=== PATIENT | male | born 1960 | race African-American/Black ===

== ENCOUNTER 2018-06-25 19:21 | Emergency (ER) | payer MEDICAID, OTHER ==
[~2018-06-25] VITALS: Ht 175.3 cm; Wt 81.6 kg
[2018-06-25 19:35] VITALS: BP 106/68
--- NOTE | 2018-06-25 19:37 | NUR ---
ED Nurse Note: pt came from [place]oe c/o shortness of breath for few days. pt is not in any resp distress at the moment, no evidence of accessory muscles being used for breathing effort. pt is alert and oriented times 4. pt is sating at 99% O2 on room air.
[2018-06-25] MEDS ORDERED: Albuterol/Ipratropium 3ml neb HHN ONE (19:45)
--- NOTE | 2018-06-25 20:03 | Emergency Room Report ---
History of Present Illness General Chief Complaint: Asthma Source: Patient Present Illness HPI 58-year-old male with history of asthma and chronic back pain controlled with albuterol inhaler and oxycodone here complaining of 2 days of shortness of breath after losing his albuterol inhaler. Patient reports that he went to [facility] and his luggage was lost and his medication including albuterol inhaler, meloxicam, and his cough medication went in the suitcase. Patient has not been able to use any albuterol inhaler in the past 2 days. Reports shortness of breath and wheezing. He reports having history of pulmonary hypertension. Has been taking NyQuilwith minimal relief. Denies dizziness, headache, nausea vomiting, vision changes, chest pain, palpitation, rhinorrhea, sore throat, and all other URI symptoms.patient ambulates to the emergency room in a stable condition and in no apparent distress. CURES was done on patient and he has extensive history of oxycodone use PRESCRIBED by the same provider. patient has been using the patch for relief of pain. Complains of low back pain 10 out of 10 without radiation denies tingling, numbness, saddle paresthesia, urinary and bowel incontinence. he later reports he has meloxicam, running low on oxycodone , has apt in [address] his primary Dr[address] patient is requesting a Z-Jamie, Ventolin HFA, and Phenergan With Codeine as he last saw his shoddy mill worker 6 months ago for pulmonary hypertension and that was a regimen that was prescribed to him. He has not seen his shoddy mill worker since. Requesting Phenergan With Codeine and Z-Jamie. Allergies: Uncoded Allergies: PENCILLIN (Allergy, Unknown, hives, 06/25/18) Patient History Past Medical History: see triage record Past Surgical History: unable to obtain Pertinent Family History: none Immunizations: UTD Reviewed Nursing Documentation: PMH: Agreed; PSxH: Agreed Nursing Documentation-PMH Past Medical History: No History, Except For Hx Hypertension: Yes - pulmonary HTN Hx Asthma: Yes Review of Systems All Other Systems: negative except mentioned in HPI Physical Exam Vital Signs Date Time Temp Pulse Resp B/P (MAP) Pulse Ox O2 Delivery O2 Flow Rate FiO2 06/25/18 19:28 98.2 100 20 106/68 94 Room Air 06/25/18 19:35 99 Sp02 EP Interpretation: reviewed, normal General Appearance: normal inspection, well appearing, no apparent distress, alert Head: normocephalic, atraumatic Eyes: bilateral eye normal inspection, bilateral eye PERRL ENT: normal ENT inspection, normal pharynx, TMs + canals normal Neck: normal inspection, supple Respiratory: chest non-tender, lungs clear, normal breath sounds, no rhonchi, no respiratory distress, no retraction, no accessory muscle use, no wheezing Cardiovascular #1: normal inspection, no edema, no murmur, normal capillary refill Gastrointestinal: normal inspection, non tender, soft Rectal: deferred Genitourinary: deferred Musculoskeletal: normal inspection, back normal Neurologic: normal inspection, alert, oriented x3 Psychiatric: normal inspection, judgement/insight normal, memory normal Skin: normal inspection, normal color, no rash, warm/dry Lymphatic: normal inspection, no adenopathy Medical Decision Making PA Attestation all diagnosis and treatment plans were reviewed and discussed with my supervising physician Dr. Ortiz ER Course 58-year-old male with history of asthma and chronic back pain controlled with albuterol inhaler and oxycodone here complaining of 2 days of shortness of breath after losing his albuterol inhaler. Patient reports that he went to [facility] and his luggage was lost and his medication including albuterol inhaler, meloxicam, and his cough medication went in the suitcase. Patient has not been able to use any albuterol inhaler in the past 2 days. Reports shortness of breath and wheezing. He reports having history of pulmonary hypertension. Has been taking NyQuilwith minimal relief. Denies dizziness, headache, nausea vomiting, vision changes, chest pain, palpitation, rhinorrhea, sore throat, and all other URI symptoms.patient ambulates to the emergency room in a stable condition and in no apparent distress. CURES was done on patient and he has extensive history of oxycodone use PRESCRIBED by the same provider. patient has been using the patch for relief of pain. Complains of low back pain 10 out of 10 without radiation denies tingling, numbness, saddle paresthesia, urinary and bowel incontinencehe later reports he has meloxicam, running low on oxycodone, has apt in [address] patient is requesting a Z-Jamie, Ventolin HFA, and Phenergan With Codeine as he last saw his shoddy mill worker 6 months ago for pulmonary hypertension and that was a regimen that was prescribed to him. He has not seen his shoddy mill worker since. Requesting Phenergan With Codeine and Z-Jamie. Ddx considered but are not limited to as well as exacerbation, chronic low back pain, wheezing unspecified, COPD Vital signs: are WNL, pt. is afebrile H&PE are most consistent with asthma exacerbation, chronic low back pain ORDERS: albuterol/ipratropium neb, albuterol HFA, phenergen Dm, zpack , toradol( per his request) ED INTERVENTIONS: albuterol/ipratropium neb DISCHARGE: At this time pt. is stable for d/c to home. Will provide printed patient care instructions, and any necessary prescriptions. Care plan and follow up instructions have been discussed with the patient prior to discharge. follow-up with the primary care provider and shoddy mill worker for further assessment. Last Vital Signs Date Time Temp Pulse Resp B/P (MAP) Pulse Ox O2 Delivery O2 Flow Rate FiO2 06/25/18 19:35 98.2 90 20 106/68 94 Room Air 06/25/18 19:35 99 Disposition: HOME, SELF-CARE Condition: Stable Patient Instructions: Asthma, Adult, Chronic Back Pain Additional Instructions: follow with primary care provider and shoddy mill worker in order to take Phenergan With Codeine in addition to your daily oxycodone orders any coming from your shoddy mill worker. As this is a chronic issues and to be assessed by a specialist Gracia Britton Jun 25, 2018 20:03
[2018-06-25] MEDS ORDERED: PROMETHAZINE-D118 ML ORAL (20:26)
[2018-06-25] MEDS ORDERED: ZITHROMAX250 MG ORAL (20:26)
[2018-06-25] MEDS ORDERED: VENTOLIN HFA18 GM INH (20:26)
[2018-06-25 20:30] VITALS: BP 110/64
[2018-06-25] MEDS ORDERED: Ketorolac 30mg Inj IM ONE (20:30)
[2018-06-25 20:44] VITALS: BP 110/64
--- NOTE | 2018-06-25 20:44 | NUR ---
ED Nurse Note: PT is Dc per ERMD orders. pt has left with all DC notes and prescriptions. pt is alert and oriented times 4. pt is able to ambulte. pt ID band remvoed. pt vital signs is stable. pt showes understanding of Dc ntoes and prescriptions as pt is able to teach back info. pt is instructed to follow up with primary MD as soon as possible. pt is instructed to report back to ER is any variance in condition. pt vital signs, status and condition is reported to ERMD prior to DC. pt is stable for DC.
== END 2018-06-25 20:44 | disposition home or self-care (01) ==
LOC: EMR 19:57
DX: J45.909 Unspecified asthma, uncomplicated (principal); G89.29 Other chronic pain; M54.9 Dorsalgia, unspecified; Z88.0 Allergy status to penicillin; Z87.891 Personal history of nicotine dependence
CPT/HCPCS: 94640; 94664; 96372; 99284; J1885; J7620

== ENCOUNTER 2018-10-22 16:09 | Emergency (ER) | payer MEDICAID, OTHER ==
[~2018-10-22] VITALS: Ht 170.2 cm; Wt 77.1 kg
[~2018-10-22 16:09] MED LIST: PROMETHAZINE-D118 ML ORAL; VENTOLIN HFA18 GM INH; ZITHROMAX250 MG ORAL
--- NOTE | 2018-10-22 16:21 | NUR ---
ED Nurse Note: Pt came in from home due to coughing x 1 week with whitish phlegm. Pt has hx of COPD. Has been using HHN at home and nebulizer but nebulizer was broken, stated " maybe I need steroids and cough medications". AOx4, SAT 96% RA, other VSS. Will cont to monitor.
[2018-10-22] MEDS ORDERED: Albuterol/Ipratropium 3ml neb HHN ONE (16:45)
--- NOTE | 2018-10-22 17:03 | Emergency Room Report ---
History of Present Illness General Chief Complaint: Upper Respiratory Illness Source: Patient Present Illness HPI 58 YO Male presents to the ED C/O having a dry cough and chest congestion x 3 days. He is out of his Albuterol Nebs at home, He ran out as he has not been receiving adequate relief of his symptoms with normal Rx'd use. pt. denies fevers or chills. reports previously a daily smoker who has ceased 2 months ago. pt. denies recent travel or ill contacts. He reports productive Sputum. Denies CP , palpitations or LE edema. Pt. reports hx of pulmonary HTN. Pt. Pt. reports cough worse at night and OTC cough Syrups are not helping. Denies abdominal pain, diaphoresis, fatigue, or dyspnea on exertion. Allergies: Uncoded Allergies: PENCILLIN (Allergy, Unknown, hives, 06/25/18) Patient History Past Medical History: see triage record Past Surgical History: none Pertinent Family History: none Reviewed Nursing Documentation: PMH: Agreed; PSxH: Agreed Nursing Documentation-PMH Past Medical History: No History, Except For Hx Hypertension: Yes - pulmonary HTN Hx Asthma: Yes Review of Systems All Other Systems: negative except mentioned in HPI Physical Exam Vital Signs Date Time Temp Pulse Resp B/P (MAP) Pulse Ox O2 Delivery O2 Flow Rate FiO2 10/22/18 16:11 98.2 100 18 144/90 (108) 95 Room Air Sp02 EP Interpretation: reviewed, normal General Appearance: no apparent distress, alert, GCS 15, non-toxic Head: normocephalic, atraumatic Eyes: bilateral eye normal inspection, bilateral eye PERRL ENT: hearing grossly normal, normal voice Neck: full range of motion Respiratory: lungs clear, normal breath sounds, no respiratory distress, no accessory muscle use, no wheezing, speaking full sentences Cardiovascular #1: regular rate, rhythm, no edema Musculoskeletal: gait/station normal, normal range of motion, non-tender Neurologic: alert, oriented x3, responsive, motor strength/tone normal, sensory intact, speech normal, grossly normal Psychiatric: judgement/insight normal Skin: normal color, no rash, warm/dry, well hydrated Medical Decision Making PA Attestation Dr. Rubio is my supervising Physician whom patient management has been discussed with. Diagnostic Impression: Primary Impression: COPD with acute exacerbation ER Course 58 YO Male presents to the ED C/O having a dry cough and chest congestion x 3 days. He is out of his Albuterol Nebs at home, He ran out as he has not been receiving adequate relief of his symptoms with normal Rx'd use. pt. denies fevers or chills. reports previously a daily smoker who has ceased 2 months ago. pt. denies recent travel or ill contacts. He reports productive Sputum. Denies CP , palpitations or LE edema. Pt. reports hx of pulmonary HTN. Pt. Pt. reports cough worse at night and OTC cough Syrups are not helping. Denies abdominal pain, diaphoresis, fatigue, or dyspnea on exertion. Ddx considered but are not limited to URI, pneumonia, PE, strep pharyngitis, meningitis. Vital signs: Pt.is afebrile VS are WNL H&PE are most consistent with COPD an acute exacerbation. ORDERS: none required at this time, the diagnosis is clinical ED INTERVENTIONS: -DuoNeb nebulized treatment. To this patient's history of having COPD and acute exacerbation he is a candidate for antibiotics as this is standard of care. DISCHARGE: At this time pt. is stable for d/c to home. Will provide printed patient care instructions, and any necessary prescriptions. Care plan and follow up instructions have been discussed with the patient prior to discharge. Last Vital Signs Date Time Temp Pulse Resp B/P (MAP) Pulse Ox O2 Delivery O2 Flow Rate FiO2 10/22/18 16:21 100 18 Room Air 10/22/18 16:11 98.2 144/90 (108) 95 Status: improved Disposition: HOME, SELF-CARE Condition: Stable Scripts Prednisone* (PREDNISONE*) 20 Mg Tablet 40 MG ORAL DAILY for 5 Days, #10 TAB Prov: Carmen Siegel 10/22/18 Albuterol Sulfate* (ALBUTEROL SULFATE HHN*) 2.5 Mg/3 Ml Vial.neb 3 ML INH Q4H PRN for Shortness of Breath, #30 EA Prov: Carmen Siegel 10/22/18 Codeine/Promethazine Hcl* (PROMETHAZINE-CODEINE SYRUP*) 118 Ml Syrup 5 ML ORAL Q6H PRN for For Cough, #120 ML 0 Refills Prov: Carmen Siegel 10/22/18 Levofloxacin* (LEVAQUIN*) 750 Mg Tablet 750 MG ORAL DAILY for 5 Days, #5 TAB Prov: Carmen Siegel 10/22/18 Referrals: NON PHYSICIAN (PCP) Patient Instructions: Acute Bronchitis, [id number] Additional Instructions: Take medications as directed. Follow up with a Primary Care Provider in 3-5 days, even if your symptoms have resolved. --Please review list of primary care clinics, if you do not already have a primary care provider Return sooner to ED if new symptoms occur, or current symptoms become worse. Do not drink alcohol, drive, or operate heavy machinery while taking Cough Syrup as this may cause drowsiness. - Please note that this Emergency Department Report was dictated using [employer] laboratory assistant technology software, occasionally this can lead to erroneous entry secondary to interpretation by the dictation equipment. Carmen Siegel Oct 22, 2018 17:03
[2018-10-22] MEDS ORDERED: PROMETHAZINE-C118 M1 ORAL (17:19)
[2018-10-22] MEDS ORDERED: PREDNISONE20 MG ORAL (17:19)
[2018-10-22] MEDS ORDERED: ALBUTEROL2.5 MG/3 M INH (17:19)
[2018-10-22] MEDS ORDERED: LEVAQUIN750 MG ORAL (17:19)
[2018-10-22 17:26] VITALS: BP 132/79
[2018-10-22 17:27] VITALS: BP 144/90
--- NOTE | 2018-10-22 17:27 | NUR ---
ER DISCHARGE NOTE: Patient is cleared to be discharged per ERMD, pt is aox4, on room air, with stable vital signs. pt was given dc and prescription instructions, pt was able to verbalize understanding, pt id band removed. pt is able to ambulate with steady gait. pt took all belongings.
== END 2018-10-22 17:27 | disposition home or self-care (01) ==
LOC: EMR 16:54
DX: J44.1 Chronic obstructive pulmonary disease with (acute) exacerbation (principal); Z87.891 Personal history of nicotine dependence; I10 Essential (primary) hypertension; Z88.0 Allergy status to penicillin
CPT/HCPCS: 94640; 94664; 99284; J7512; J7620

== ENCOUNTER 2018-11-13 23:09 | Emergency (ER) | payer OTHER ==
[~2018-11-13] VITALS: Ht 172.7 cm; Wt 81.6 kg
[~2018-11-13 23:09] MED LIST changes: +ALBUTEROL2.5 MG/3 M INH; +LEVAQUIN750 MG ORAL; +PREDNISONE20 MG ORAL; +PROMETHAZINE-C118 M1 ORAL
[2018-11-13 23:35] VITALS: BP 142/89
--- NOTE | 2018-11-13 23:35 | NUR ---
ED Nurse Note: Pt arrived ED from home, c/o Flu like symptum for one week. Pt is A/O X4, Vital signs stable at this time, waiting for orders.
[2018-11-14] MEDS ORDERED: PREDNISONE20 MG ORAL
[2018-11-14] MEDS ORDERED: POLYTRIM OP SOL10 ML BOTH EYES
[2018-11-14] MEDS ORDERED: PROMETHAZINE-C118 M1 ORAL
--- NOTE | 2018-11-14 | Emergency Room Report ---
History of Present Illness General Chief Complaint: Upper Respiratory Illness Source: Patient Present Illness [facility] This is a 58-year-old male with a history of COPD. He presents with chief complaint of coughing. Productive phlegm. Ongoing for about a week. Also with redness to the left eye. No nausea no vomiting. Unable to sleep because of the coughing. Denies any other complaint. Allergies: Uncoded Allergies: PENCILLIN (Allergy, Unknown, hives, 06/25/18) Patient History Past Medical History: see triage record, old chart reviewed, COPD Past Surgical History: other Pertinent Family History: none Social History: Denies: smoking Immunizations: other Reviewed Nursing Documentation: PMH: Agreed; PSxH: Agreed Nursing Documentation-PMH Hx Hypertension: Yes Hx Asthma: Yes Hx COPD: Yes Review of Systems Eye: Denies: eye pain, blurred vision ENT: Denies: ear pain, nose congestion, throat swelling Respiratory: Reports: cough; Denies: shortness of breath Cardiovascular: Denies: chest pain, palpitations Gastrointestinal: Denies: abdominal pain, diarrhea, nausea, vomiting Musculoskeletal: Denies: back pain, joint pain Skin: Denies: rash Neurological: Denies: headache, numbness Endocrine: Denies: increased thirst, increased urine Hematologic/Lymphatic: Denies: easy bruising All Other Systems: negative except mentioned in HPI Physical Exam Vital Signs Date Time Temp Pulse Resp B/P (MAP) Pulse Ox O2 Delivery O2 Flow Rate FiO2 11/13/18 23:27 98.1 76 16 145/91 (109) 95 Room Air Vitals unremarkable Sp02 EP Interpretation: reviewed, normal General Appearance: well appearing, no apparent distress, alert Head: normocephalic, atraumatic Eyes: left eye other - injected conjunctiva; bilateral eye PERRL, bilateral eye EOMI ENT: hearing grossly normal, normal pharynx Neck: full range of motion, supple, no meningismus Respiratory: chest non-tender, lungs clear, normal breath sounds Cardiovascular #1: regular rate, rhythm, no murmur Gastrointestinal: normal bowel sounds, non tender, no mass, no organomegaly, no bruit, non-distended Musculoskeletal: back normal, gait/station normal, normal range of motion Psychiatric: mood/affect normal Skin: warm/dry Medical Decision Making Diagnostic Impression: Primary Impression: Upper respiratory infection Qualified Codes: J06.9 - Acute upper respiratory infection, unspecified Additional Impression: Conjunctivitis Qualified Codes: H10.32 - Unspecified acute conjunctivitis, left eye ER Course Patient presents with upper respiratory infection. No evidence of ACS, PE, dissection to name a few. Will discharge home. Last Vital Signs Date Time Temp Pulse Resp B/P (MAP) Pulse Ox O2 Delivery O2 Flow Rate FiO2 11/13/18 23:27 98.1 76 16 145/91 (109) 95 Room Air Status: unchanged Disposition: HOME, SELF-CARE Condition: Stable Scripts Codeine/Promethazine Hcl* (PROMETHAZINE-CODEINE SYRUP*) 118 Ml Syrup 5 ML ORAL Q6H PRN for For Cough, #118 ML 0 Refills Prov: Modesto Bragg MD 11/14/18 Prednisone* (PREDNISONE*) 20 Mg Tablet 40 MG ORAL DAILY, #10 TAB Prov: Modesto Bragg MD 11/14/18 Polymyxin/Trimethoprim (Polytrim Eye Drops) 10 Ml Drops 1 DROP BOTH EYES Q4H, #10 ML Prov: Modesto Bragg MD 11/14/18 Referrals: [facility],REFERRING (PCP) Patient Instructions: Upper Respiratory Infection, Adult Additional Instructions: Follow-up with your doctor in 7 days. Return if worse. Modesto Bragg MD Nov 14, 2018 00:00
[2018-11-14 00:06] VITALS: BP 142/87
--- NOTE | 2018-11-14 00:06 | NUR ---
ER DISCHARGE NOTE: Patient is cleared to be discharged per Dr. Bragg. Pt is aox4 on room air with stable vital signs. Pt was given dc and prescription instructions and was able to verbalize understanding. Pt's ID band removed. Pt is able to ambulate with steady gait and took all belongings.
== END 2018-11-14 00:06 | disposition home or self-care (01) ==
LOC: EMR 23:45
DX: J06.9 Acute upper respiratory infection, unspecified (principal); H10.32 Unspecified acute conjunctivitis, left eye; J44.9 Chronic obstructive pulmonary disease, unspecified; Z88.0 Allergy status to penicillin
CPT/HCPCS: 99282

== ENCOUNTER 2019-01-07 17:10 | Emergency (ER) | payer OTHER ==
[~2019-01-07] VITALS: Ht 172.7 cm; Wt 81.6 kg
[~2019-01-07 17:10] MED LIST changes: +POLYTRIM OP SOL10 ML BOTH EYES
[2019-01-07 17:30] VITALS: BP 101/66
--- NOTE | 2019-01-07 17:30 | NUR ---
ED Nurse Note: pt walked in due to coughing x 3 days. pt stated has on and off asthma attack since 30 years ago. pt not in acute distress. pt is seen by bobby molina. will continue to monitor.
[2019-01-07] MEDS ORDERED: Ipratropium 0.02% Inh Soln 2.5ml UD HHN ONE (17:45)
[2019-01-07] MEDS ORDERED: Albuterol ud Inhalation HHN ONE (17:45)
--- NOTE | 2019-01-07 17:45 | NUR ---
ED Nurse Note: pt medicated as ordered. pt able to tolerate po meds.
--- NOTE | 2019-01-07 18:30 | NUR ---
ED Nurse Note: respiratory therapist on bedside giving nebulization.
[2019-01-07 19:18] VITALS: BP 125/82
[2019-01-07] MEDS ORDERED: PREDNISONE20 MG ORAL (19:30)
[2019-01-07] MEDS ORDERED: VENTOLIN HFA18 GM INH (19:30)
[2019-01-07] MEDS ORDERED: TUSSIN DM LIQU118 ML PO ×2 (19:30)
[2019-01-07 19:40] VITALS: BP 125/82
[2019-01-07] MEDS ORDERED: PHENERGAN6.25 MG/5 ORAL ×3 (19:43→19:47)
--- NOTE | 2019-01-07 20:26 | Emergency Room Report ---
History of Present Illness General Chief Complaint: Asthma Source: Patient Present Illness HPI 58 year old male complaining of cough for 3 to 4 days, with shortness of breath today. Denies fever, chest pain, leg pain, rash. H/o asthma, no recent hospitalization for asthma. Recently quit smoking. Allergies: Uncoded Allergies: PENCILLIN (Allergy, Unknown, hives, 06/25/18) Patient History Past Medical History: HTN, asthma, COPD Past Surgical History: none Social History: Reports: smoking; Denies: alcohol use, drug use Nursing Documentation-[facility] Past Medical History: No History, Except For Hx Hypertension: Yes Hx Asthma: Yes Hx COPD: Yes Review of Systems All Other Systems: negative except mentioned in HPI Physical Exam Vital Signs Date Time Temp Pulse Resp B/P (MAP) Pulse Ox O2 Delivery O2 Flow Rate FiO2 01/07/19 17:14 98.8 91 17 101/66 (78) 94 Room Air 01/07/19 18:28 21 Sp02 EP Interpretation: reviewed General Appearance: no apparent distress, alert, GCS 15, non-toxic Eyes: bilateral eye normal inspection, bilateral eye PERRL Respiratory: normal inspection, lungs clear, no rhonchi, no respiratory distress, no retraction, no accessory muscle use, no wheezing, other - bronchial breath sounds Cardiovascular #1: normal inspection, regular rate, rhythm Neurologic: normal inspection, curing press maintainer III-XII nml as tested, normal gait Medical Decision Making PA Attestation This patient was seen under the direct supervision of Dr. Ortiz, who directed all aspects of care and diagnostic interpretation. Diagnostic Impression: Primary Impression: Asthma attack Qualified Codes: J45.21 - Mild intermittent asthma with (acute) exacerbation ER Course ED course HPI: 58 year old male complaining of cough for 3 to 4 days, with shortness of breath today. Denies fever, chest pain, leg pain, rash. Well-appearing, nontoxic in appearance. Speaking full sentences without respiratory distress. Oxygen saturation 94% on room air. Bronchial breath sounds bilaterally. no wheezes, rhonchi or rales. Ddx: URI versus allergies versus asthma HPI & PE consistent with: Asthma exacerbation Orders/ Interventions: Breathing treatment with albuterol and Atrovent given. Patient reassessed. Patient feels less shortness of breath, oxygen saturation 95-96% on room air. Disposition: Patient stable for discharge. Prescription for albuterol inhaler, prednisone 40 mg x 5 days (start tomorrow), and promethazine-dm given. Supportive care, increase oral hydration. Followup with PCP in 2 days or return to ED if worsening symptoms, new symptoms or sudden change in condition. Please note that this Emergency Department Report was dictated using [employer]data analyst technology software, occasionally this can lead to erroneous entry secondary to interpretation by the dictation equipment. Last Vital Signs Date Time Temp Pulse Resp B/P (MAP) Pulse Ox O2 Delivery O2 Flow Rate FiO2 01/07/19 19:40 98.8 68 16 125/82 95 Room Air 21 Status: improved Disposition: HOME, SELF-CARE Condition: Improved Scripts Promethazine/Dextromethorphan (Promethazine-Dm Syrup) 473 Ml Syrup 5 ML ORAL QHS PRN for For Cough, #120 ML 0 Refills Prov: Marcelino Henderson 01/07/19 Prednisone* (PREDNISONE*) 20 Mg Tablet 40 MG ORAL DAILY, #10 TAB Prov: Marcelino Henderson 01/07/19 Albuterol Sulfate (VENTOLIN HFA) 18 Gm Hfa.aer.ad 2 PUFFS INH EVERY 6 HOURS, #18 GM 0 Refills Prov: Marcelino Henderson 01/07/19 Patient Instructions: Asthma, Adult Additional Instructions: Followup with PCP in 2 days return to ED if worsening symptoms, new symptoms or sudden change in condition. Marcelino Henderson Jan 07, 2019 20:26
== END 2019-01-07 19:40 | disposition home or self-care (01) ==
LOC: EMR 17:51
DX: J45.21 Mild intermittent asthma with (acute) exacerbation (principal); I10 Essential (primary) hypertension; J44.9 Chronic obstructive pulmonary disease, unspecified; Z88.0 Allergy status to penicillin; Z87.891 Personal history of nicotine dependence
CPT/HCPCS: 94640; 99284; J7512

== ENCOUNTER 2020-03-12 21:36 | Emergency (ER) | payer MEDICAID, OTHER ==
[~2020-03-12] VITALS: Ht 172.7 cm; Wt 83.9 kg
[~2020-03-12 21:36] MED LIST changes: +PHENERGAN6.25 MG/5 ORAL; +TUSSIN DM LIQU118 ML PO
--- NOTE | 2020-03-12 22:00 | NUR ---
ED Nurse Note: ERMD at bedside
[2020-03-12 22:02] VITALS: BP 132/94
--- NOTE | 2020-03-12 22:02 | NUR ---
ED Nurse Note: pt ambulated into ed from home Co fever and cough at home with white phlegm after expectoration. Pt denies pain. Pt VSS no ss of distress noted. will continue to monitor. Awaiting ERMD at bedside. Awaiting further orders. Pt aao x 4, ambulates with steady gait.
--- NOTE | 2020-03-12 22:05 | Emergency Room Report ---
History of Present Illness General Chief Complaint: Flu Like Symptoms Source: Patient Present Illness [facility] This is a 59-year-old male with a history of asthma. He also start smoking again. He presents with cumulative coughing and subjective fever and chills. Onset for last 2 days. Slight sore throat. Coughing is slight phlegm. No nausea vomiting or diarrhea. No abdominal pain. No sick contact. Had Covid testing last month and was negative. Worse with inspiration. Better with rest. Also out of his inhaler. 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 Patient History Past Medical History: see triage record, old chart reviewed, asthma Past Surgical History: other Pertinent Family History: none Social History: Reports: smoking Immunizations: other Reviewed Nursing Documentation: PMH: Agreed; PSxH: Agreed Nursing Documentation-PMH Hx Hypertension: Yes Hx Asthma: Yes Hx COPD: Yes Review of Systems Constitutional: Reports: chills, fever Eye: Denies: eye pain, blurred vision ENT: Denies: ear pain, nose congestion, throat swelling Respiratory: Reports: cough; Denies: shortness of breath Cardiovascular: Denies: chest pain, palpitations Gastrointestinal: Denies: abdominal pain, diarrhea, nausea, vomiting Musculoskeletal: Denies: back pain, joint pain Skin: Denies: rash Neurological: Denies: headache, numbness Endocrine: Denies: increased thirst, increased urine Hematologic/Lymphatic: Denies: easy bruising All Other Systems: negative except mentioned in HPI Physical Exam Vital Signs Date Time Temp Pulse Resp B/P (MAP) Pulse Ox O2 Delivery O2 Flow Rate FiO2 03/12/20 21:52 98.6 94 20 132/94 (107) 95 Room Air Vitals normal Sp02 EP Interpretation: reviewed, normal General Appearance: well appearing, no apparent distress, alert Head: normocephalic, atraumatic Eyes: bilateral eye PERRL, bilateral eye EOMI ENT: hearing grossly normal, normal pharynx Neck: full range of motion, supple, no meningismus Respiratory: chest non-tender, lungs clear, normal breath sounds Cardiovascular #1: regular rate, rhythm, no murmur Gastrointestinal: normal bowel sounds, non tender, no mass, no organomegaly, no bruit, non-distended Musculoskeletal: back normal, normal range of motion, gait/station normal Psychiatric: mood/affect normal Medical Decision Making Diagnostic Impression: Primary Impression: Asthma Qualified Codes: J45.21 - Mild intermittent asthma with (acute) exacerbation Additional Impression: COVID-19 virus infection ER Course Patient presents with congestion and fever and chills. He is positive for Covid. Lungs are clear. Oxygenation high percent. Stable for outpatient treatment. Last Vital Signs Date Time Temp Pulse Resp B/P (MAP) Pulse Ox O2 Delivery O2 Flow Rate FiO2 03/12/20 21:52 98.6 94 20 132/94 (107) 95 Room Air Status: improved Disposition: HOME, SELF-CARE Condition: Stable Scripts Colchicine (Colchicine) 0.6 Mg Capsule 0.6 MG PO BID for 10 Days, CAP Prov: Modesto Bragg MD 03/12/20 Codeine/Promethazine Hcl* (PROMETHAZINE-CODEINE SYRUP*) 118 Ml Syrup 5 ML ORAL Q6H PRN for For Cough, #240 ML 0 Refills Prov: Modesto Bragg MD 03/12/20 Nicotine 14MG Patch* (NICODERM CQ 14MG*) 1 Each Patch.td24 1 EACH TD DAILY, #30 EA Prov: Modesto Bragg MD 03/12/20 Prednisone* (PREDNISONE*) 20 Mg Tablet 40 MG ORAL DAILY, #8 TAB Prov: Modesto Bragg MD 03/12/20 Albuterol Sulfate* (Albuterol Sulfate Hfa*) 8.5 Gm Hfa.aer.ad 2 PUFF INH Q4H, #1 INH Prov: Modesto Bragg MD 03/12/20 Additional Instructions: Follow-up with your doctor in 7 days. Recommend by a pulse oximeter to measure your oxygenation. Return to hospital if the oxygenation is 90% or lower. Modesto Bragg MD Mar 12, 2020 22:05
--- NOTE | 2020-03-12 22:13 | NUR ---
ED Nurse Note: Covid-19 swab obtained and sent to lab
--- NOTE | 2020-03-12 22:52 | NUR ---
ED Nurse Note: ALL MEDICATIONS ADMINISTERED, PT TOLERATED WELL NO SS OF DISTRESS NOTED. WILL CONTINUE TO MONITOR.
[2020-03-12] MEDS ORDERED: ALBUTEROL SULF8.5 G1 INH (23:05)
[2020-03-12] MEDS ORDERED: PROMETHAZINE-C118 M1 ORAL (23:05)
[2020-03-12] MEDS ORDERED: COLCHICINE0.6 M1 PO (23:05)
[2020-03-12] MEDS ORDERED: PREDNISONE20 MG ORAL (23:05)
[2020-03-12] MEDS ORDERED: NICODERM CQ1 EAC1 TD (23:05)
--- NOTE | 2020-03-12 23:10 | NUR ---
ED Nurse Note: ERMD at bedside
[2020-03-12 23:15] VITALS: BP 135/89
--- NOTE | 2020-03-12 23:15 | NUR ---
ER DISCHARGE NOTE: Patient is cleared to be discharged home per ERMD, pt is aox4, 99% on room air, with stable vital signs. pt was given dc and prescription instructions, pt was able to verbalize understanding, pt id band removed without complications. pt is able to ambulate with steady gait. pt took all belongings.
== END 2020-03-12 23:15 | disposition home or self-care (01) ==
LOC: EMR 22:05
DX: U07.1 COVID-19 (principal); J45.21 Mild intermittent asthma with (acute) exacerbation; F17.200 Nicotine dependence, unspecified, uncomplicated; J44.9 Chronic obstructive pulmonary disease, unspecified; I10 Essential (primary) hypertension; Z88.0 Allergy status to penicillin
CPT/HCPCS: J7512; U0002; Z7502; 99282

== ENCOUNTER 2020-05-01 21:11 | Emergency (ER) | payer MEDICAID ==
[~2020-05-01] VITALS: Ht 172.7 cm; Wt 81.6 kg
[~2020-05-01 21:11] MED LIST changes: +ALBUTEROL SULF8.5 G1 INH; +COLCHICINE0.6 M1 PO; +NICODERM CQ1 EAC1 TD
--- NOTE | 2020-05-01 21:44 | Emergency Room Report ---
History of Present Illness General Chief Complaint: Skin Rash/Abscess Source: Patient Present Illness HPI Patient returns with productive cough. In addition to that he is got skin lesions. There is a infected area as his right anterior thigh that he says was quite a bit larger but it has been draining pus. The area of swelling has improved. Also the redness has improved. There is also an itchy rash bilat erally from his back extending to both sides of his chest. He denies any fevers at this time. Patient also has a history of asthma. He does have an inhaler but this is running out. He states he has Motrin and tramadol which have been helping with the pain in the thigh infection. He believes his tetanus vaccination is out of date. The patient was diagnosed with COVID-19 March 12. He had upper respiratory symptoms at that time. Improved with prednisone and inhaler. The patient has a history of asthma. This is not his worst attack. No sore throat, chest pain, palpitations, nausea, vomiting, diarrhea, dysuria, abdominal pain, joint pain, depression, anxiety, visual changes, dizziness, headache. 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 COVID-19 Screening: Positive COVID-19 COVID-19 Testing Source: 03/12/20 Patient History Past Medical History: see triage record Social History: Reports: smoking; Denies: alcohol use - Prior, drug use - Prior Social History Narrative Drug rehab counselor Reviewed Nursing Documentation: PMH: Agreed; PSxH: Agreed Nursing Documentation-PM Past Medical History: No History, Except For Hx Hypertension: Yes Hx Asthma: Yes Hx COPD: Yes Review of Systems All Other Systems: negative except mentioned in HPI Physical Exam Vital Signs Date Time Temp Pulse Resp B/P (MAP) Pulse Ox O2 Delivery O2 Flow Rate FiO2 05/01/20 21:17 98.2 83 17 132/85 (101) 93 Room Air Sp02 EP Interpretation: reviewed, abnormal - Interpreted as slightly low by me General Appearance: well appearing, no apparent distress, GCS 15 Head: normocephalic Eyes: bilateral eye normal inspection, bilateral eye PERRL, bilateral eye EOMI ENT: other - Wearing a mask Neck: supple Respiratory: lungs clear, normal breath sounds, no respiratory distress, no wheezing Cardiovascular #1: regular rate, rhythm Cardiovascular #2: 2+ radial (R) Gastrointestinal: normal inspection, normal bowel sounds, non tender, no mass, non-distended Musculoskeletal: back normal, normal range of motion, gait/station normal Neurologic: alert, oriented x3, grossly normal Psychiatric: mood/affect normal Skin: warm/dry, other - Abscess right anterior thigh without fluctuance and with the site of apparent drainage. In addition streaking areas of excoriation upper back and lateral chest bilaterally Medical Decision Making Diagnostic Impression: Primary Impression: Asthma Qualified Codes: J45.31 - Mild persistent asthma with (acute) exacerbation Additional Impression: Cellulitis Qualified Codes: L03.115 - Cellulitis of right lower limb ER Course Patient presents with 2 problems. One is that he has an abscess on his right anterior thigh that is begun draining. The second is productive cough with wheezing with history of asthma and recent Covid. Differential includes abscess, cellulitis, allergic reaction on chest amongst others. Regarding the upper respiratory symptoms differential includes pneumonia, asthmatic bronchitis, viral bronchitis amongst others. The patient is afebrile at this time and exam is against this being pneumonia. The diagnosis is clinical without laboratory or x-ray evaluation. Patient denies chest pain and therefore cardiac causes unlikely. Treatment will be with prednisone, bacitracin, Bactrim. The patient was requesting "the same cough syrup as before". In addition he is requesting a shot. In addition the patient will receive tetanus vaccination. Discussed treatment plan with patient. Discussed the need for outpatient follow-up with his own private physician. Advised to return if not doing well. Patient improved with treatment. Discharge oximetry 99%. No medical emergency at this time. Patient stable for outpatient observation and treatment. Last Vital Signs Date Time Temp Pulse Resp B/P (MAP) Pulse Ox O2 Delivery O2 Flow Rate FiO2 05/01/20 22:02 98.2 85 18 135/86 99 Room Air Status: improved Disposition: HOME, SELF-CARE Condition: Improved Scripts Albuterol Sulfate* (Albuterol Sulfate Hfa*) 8.5 Gm Hfa.aer.ad 2 PUFF INH Q6H, #1 INH 1 Refill Prov: Bennie Rubio MD 05/01/20 Bacitracin (Bacitracin) 28.4 Gm Oint...g. 1 APPLIC TOPIC BID, #20 GM Prov: Bennie Rubio MD 05/01/20 Trimethoprim/Sulfamethoxazole 160/800* (BACTRIM DS TABLET*) 1 Each Tablet 1 TAB ORAL Q12H, #14 TAB 0 Refills Prov: Bennie Rubio MD 05/01/20 Promethazine/Dextromethorphan (Promethazine-Dm Syrup) 473 Ml Syrup 10 ML PO Q6HR PRN for For Cough, #473 ML Prov: Bennie Rubio MD 05/01/20 Prednisone* (PREDNISONE*) 20 Mg Tablet 40 MG ORAL DAILY, #10 TAB Prov: Bennie Rubio MD 05/01/20 Referrals: NON PHYSICIAN (PCP) Bennie Rubio MD May 01, 2020 21:44
[2020-05-01] MEDS ORDERED: Bacitracin Oint UD TOPIC ONE (21:45)
[2020-05-01] MEDS ORDERED: Tetanus/Diptheria/Pertussis IM ONE (21:45)
[2020-05-01] MEDS ORDERED: Bactrim-DS 1 tab ORAL ONE (21:45)
[2020-05-01] MEDS ORDERED: PREDNISONE20 MG ORAL (21:48)
[2020-05-01] MEDS ORDERED: PROMETHAZINE-D473 M1 PO (21:49)
[2020-05-01] MEDS ORDERED: BACITRACIN15 GM TOPIC (21:49)
[2020-05-01] MEDS ORDERED: BACTRIM DS TAB1 EAC1 ORAL (21:49)
[2020-05-01 21:50] VITALS: BP 132/85
[2020-05-01] MEDS ORDERED: ALBUTEROL SULF8.5 G1 INH (21:55)
[2020-05-01 22:02] VITALS: BP 135/86
== END 2020-05-01 22:02 | disposition home or self-care (01) ==
LOC: EMR 21:26
DX: L03.115 Cellulitis of right lower limb (principal); J45.31 Mild persistent asthma with (acute) exacerbation; I10 Essential (primary) hypertension; Z86.19 Personal history of other infectious and parasitic diseases; Z88.0 Allergy status to penicillin
CPT/HCPCS: 90471; 90715; J7512; Z7502; 99283